=== PATIENT | male | born 2000 | race Asian ===

== ENCOUNTER 2023-03-15 18:29 | Emergency (ER) | payer SELFPAY ==
[2023-03-15 18:37] VITALS: BP 130/115; PULSE 89; RESP 20; TEMP 37.6; O2SAT 97; BMI 29.4
--- NOTE | 2023-03-15 19:01 | ED_ITS ---
HPI - Wound/Laceration General Chief Complaint: Laceration/Wound Stated Complaint: Lip lac Time Seen by Provider: 03/15/23 18:30 History of Present Illness HPI narrative: This 22-year-old male comes in with a laceration to his right lower lip. He was playing soccer and got knocked over backwards and hit his head. He states that he feels like he got dazed with a brief loss of consciousness. He was able to get up and does not have any other symptoms other than a laceration in his right lower lip. He does not report any nausea. He does not have a headache there has been no vomiting. He does not have any neurologic deficits or altered level of consciousness. His tetanus status is out of date. Records show that his last tetanus was 12 years ago. Related Data Home Medications Medication Instructions Recorded Confirmed No Known Home Medications 03/15/23 03/15/23 Allergies Allergy/AdvReac Type Severity Reaction Status Date / Time No Known Drug Allergies Allergy Verified 03/15/23 18:42 Review of Systems Status of ROS: Reports: 10 or more systems reviewed and unremarkable except as noted in History and below Narrative: Constitutional: No fevers, no weight gain or loss. Eyes: No discharge. No vision changes. HENT: No congestion, no sore throat, no ear pain. Cardiovascular: No chest pain, no palpitations. Respiratory: No shortness of breath, no wheezes, no cough. Gastrointestinal: No abdominal pain, no vomiting, no diarrhea. Genitourinary: No dysuria, no hematuria. Musculoskeletal: Normal range of motion. Skin: No rashes, no pruritis. Lip laceration. Neurological: No dizziness, weakness, sensory change, speech change. Endo/Heme/Allergies: No bruising or bleeding. No polydipsia. Pysch: no suicidality, no anxiety, no insomnia. All other systems reviewed and are negative. Exam Narrative: Exam Narrative: Constitutional: Well-developed, well-nourished, no acute distress. HEENT: Normocephalic. The right lower lip has a laceration that does not extend across the border of the lip. It is approximately 1 cm in length and it does open when he moves his mouth. Neck: Normal range of motion. Nontender. Supple. Heart: Intact distal pulses. Lungs: No chest discomfort. No wheezes, rhonchi, or rales. Abdomen: Nontender. Back: Normal range of motion. Extremities: Normal range of motion. No injury. Skin: Intact. No rash. Warm. No erythema or pallor. Neurologic: No altered sensation. No weakness. Alert and oriented. Psychiatric: No suicidality. No anxiety or depression. No insomnia. Nursing notes and vitals signs are reviewed. Const: Vital Signs, click to edit/add: Vital Signs - 24 hr 03/15/23 18:37 Temperature 99.6 F Pulse Rate [Right Pulse Oximeter] 89 Respiratory Rate 20 Blood Pressure [Ri ght Upper Arm] 130/115 H Pulse Oximetry 97 Oxygen Delivery Me thod Room Air Course Vital Signs Vital signs: Initial Vital Signs Temperature 99.6 F 03/15/23 18:37 Temperature Source Temporal Artery Scan 03/15/23 18:37 Pulse Rate 89 03/15/23 18:37 Pulse Rhythm Regular 03/15/23 18:37 Respiratory Rate 20 03/15/23 18:37 Blood Pressure 130/115 H 03/15/23 18:37 Blood Pressure Mean 120 H 03/15/23 18:37 Blood Pressure Position Sitting 03/15/23 18:37 Pulse Oximetry 97 03/15/23 18:37 Oxygen Delivery Method Room Air 03/15/23 18:37 Vital Signs Temperature 99.6 F 03/15/23 18:37 Pulse Rate 89 03/15/23 18:37 Respiratory Rate 20 03/15/23 18:37 Blood Pressure 130/115 H 03/15/23 18:37 Pulse Oximetry 97 03/15/23 18:37 Oxygen Delivery Method Room Air 03/15/23 18:37 Temperature 99.6 F 03/15/23 18:37 Pulse Rate 89 03/15/23 18:37 Respiratory Rate 20 03/15/23 18:37 Blood Pressure 130/115 H 03/15/23 18:37 Pulse Oximetry 97 03/15/23 18:37 Oxygen Delivery Method Room Air 03/15/23 18:37 MDM - Wound/Laceration MDM Narrative Medical decision making narrative: This patient had a injury playing soccer where he reports a very brief loss of consciousness or that he was dazed. I did discuss guidelines for doing CT imaging of his head but he is not tripping those triggers and he declines imaging. As for his lip laceration, the wound does not extend beyond the border of the lip. It is on the upper aspect of the right lower lip and extends a bit into the mouth. When he does move his lips or speak the wound opens up significantly. I stated we usually do not repair wounds inside the mouth. I did recommend placing 1 suture to hold the edges of his laceration together. He agreed to this plan. After anesthesia with 1% lidocaine with epinephrine, I placed 1 suture using 6.0 Ethilon suture. The patient tolerated this procedure well. Instructions were given regarding wound care. Discharge Plan Discharge Clinical Impression: Laceration Patient Disposition: Home, Self-Care Condition: Improved Additional Instructions: Activity as tolerated. Follow up with urgent care or clinic in 4-6 days for suture removal. Return if worsening. Prescriptions: No Action No Known Home Medications Follow Up/Referrals: Provider,Not a Local [Primary Care Provider] - Stand Alone Forms: [employer] Info Instructions
== END 2023-03-15 19:15 | disposition home or self-care (01) ==
LOC: ED 19:13
PROVIDERS: Emergency Provider Emergency Medicine Emergency Medical Services
DX: S01.511A Laceration without foreign body of lip, initial encounter (principal); Y93.66 Activity, soccer
CPT/HCPCS: 12011; 99283; 99284